=== PATIENT | female | born 1955 | race Caucasian/White ===

== ENCOUNTER 2021-02-02 20:50 | Emergency (ER) | payer MEDICARE, OTHER ==
[~2021-02-02] VITALS: Ht 162.6 cm; Wt 53.5 kg
--- NOTE | 2021-02-02 20:55 | NUR ---
PT BIBSELF C/O OF BLISTERS ON HEELS OF BILATERAL LOWER EXTREMITIES S/P HIKING TODAY. PT AAOX4 BREATHING EVENLY AND UNLABORED. PT SKIN IS WARM AND DRY. PT ATTACHED TO MONITOR AND POX. PT GIVEN BLANKET AND CALL LIGHT WITHIN REACH.
--- NOTE | 2021-02-02 22:00 | NUR ---
CLEANED BLISTERS WITH NORMAL SALINE AND PUT TRIPLE ANTIBIOTIC OINTMENT ON BOTH HEELS. PLACED BANDAID ON HEELS
--- NOTE | 2021-02-02 22:06 | NUR ---
Patient discharged to home in stable condition. Written and verbal after care instructions given. Patient verbalizes understanding of instruction. Pt ambulatory with a steady gait
[2021-02-02 22:34] VITALS: BP 145/70
== END 2021-02-02 22:06 | disposition home or self-care (01) ==
LOC: ER 21:07 → EDBD 21:07 → ER 22:06
DX: T25.222A Burn of second degree of left foot, initial encounter (principal); T25.221A Burn of second degree of right foot, initial encounter; I10 Essential (primary) hypertension; E11.9 Type 2 diabetes mellitus without complications; X08.8XXA Exposure to other specified smoke, fire and flames, initial encounter; Y93.89 Activity, other specified; Y92.89 Other specified places as the place of occurrence of the external cause; Y99.8 Other external cause status